=== PATIENT | male | born 1970 | race Caucasian/White ===

== ENCOUNTER → 2023-06-08 | Outpatient (CLI) | payer MEDICAID | END | disposition home or self-care (01) | LOC: LAB 05:58 | PROVIDERS: ATTEND Podiatrist | DX: E11.621 Type 2 diabetes mellitus with foot ulcer (principal) | CPT/HCPCS: 87077; 87186; 87205 ==

== ENCOUNTER 2023-08-09 10:23 | Day surgery (SDC) | payer OTHER, MEDICAID ==
[2023-08-08 10:50] LABS: Basophils # (auto) 0.1 10 ^3/uL (0-0.2); Basophils % (auto) 0.9 % (0.0-2.0); Eosinophils # (auto) 0.2 10 ^3/uL (0-0.8); Eosinophils % (auto) 3.3 % (0.0-7.0); Hematocrit 41.3 % (41.0-53.0); Lymphocytes # (auto) 1.9 10 ^3/uL (0.4-5.4); Lymphocytes % (auto) 26.8 % (10.0-50.0); Mean Corpuscular Hgb Conc. 33.9 g/dL (32.0-36.0); Mean Corpuscular Volume 82.6 fL (80.0-100.0); Monocytes # (auto) 0.6 10 ^3/uL (0-1.3); Monocytes % (auto) 8.5 % (0.0-12.0); Neutrophils # (auto) 4.2 10 ^3/uL (1.6-8.6); Neutrophils % (auto) 60.5 % (37.0-80.0); Nucleated Red Blood Cells % 0.2 %; Red Cell Distribution Width 14.7 % (11.8-14.3)
[2023-08-08 10:57] LABS: Urine Bacteria NONE SEEN /hpf (None Seen); Urine Blood Negative /uL (Negative); Urine Clarity Clear (Clear); Urine Color Yellow (Yellow); Urine Protein, UAD 1+ (Negative); Urine Specific Gravity 1.023 (1.001-1.035); Urine Urobilinogen Normal (Negative); Urine WBC 3 /hpf (0 - 3)
[2023-08-08 11:13] LABS: INR 1.04 (0.9-1.15); Partial Thromboplastin Time 25.8 SEC (24.5-34.5); Prothrombin Time 10.9 sec (9.3-11.8)
[2023-08-08 11:39] LABS: Alanine Aminotransferase 22 U/L (7-40); Albumin 4.9 g/dL (3.2-4.8); Alkaline Phosphatase 71 U/L (46-116); Anion Gap 6 (5-15); Aspartate Aminotransferase 16 U/L (13-40); BUN/Creatinine Ratio 18.2 (10.0-20.0); Bilirubin, Total 0.4 mg/dL (0.2-1.0); Blood Urea Nitrogen 18 mg/dL (9-23); Calcium 10.5 mg/dL (8.7-10.4); Carbon Dioxide 29 mmol/L (20-30); Chloride 101 mmol/L (98-107); Glucose 75 mg/dL (74-106); Potassium 4.7 mmol/L (3.5-5.1); Sodium 136 mmol/L (136-145); Total Protein 8.2 g/dL (5.7-8.2)
[~2023-08-09] VITALS: Ht 188 cm; Wt 137.9 kg
[~2023-08-09 10:23] MED LIST: ALEN35TA18 PO; AMLO1TAB22 PO; ASPI81CH59 PO; ATOR40TA52 PO; CANA300T OR; CHLO25TA2 PO; CYCL-837 PO; GABA-1250 PO; IBUP-1454 PO; INSU100I52 IJ; INSU1INJ19 SC; LISI40TA16 PO; METF-372 PO; OMEP20TA PO
[2023-08-09] MEDS ORDERED: ceFAZolin 2 GM/D5W100ml 100 ML IV ONE (10:46)
[2023-08-09] MEDS ORDERED: PROPOFOL 10 MG/ML 20 ML IV ONE (11:29)
[2023-08-09] MEDS ORDERED: fentaNYL CITRATE 100 MCG/2 ML VL ONE (11:29)
[2023-08-09] MEDS ORDERED: MEPERIDINE HCL (25 MG/ML) 1ML VIAL IV PRN (12:15)
[2023-08-09] MEDS ORDERED: ONDANSETRON HCL 4 MG/2 ML VIAL IV PRN (12:15)
[2023-08-09] MEDS ORDERED: HYDROmorphone HCL 2 MG/ML VL/or syr IV PRN (12:15)
[2023-08-09] MEDS ORDERED: METOCLOPRAMIDE HCL 5MG/ml INJ 2ml VIAL IV PRN (12:15)
[2023-08-09] MEDS ORDERED: DexAMETHasone SOD PHOS 10MG/1ML VIAL INJ ONE (12:32)
[2023-08-09] MEDS ORDERED: ONDANSETRON HCL 4 MG/2 ML VIAL ONE (12:32)
[2023-08-09] MEDS ORDERED: ePHEDrine SULFATE 50 MG/ML AMP ONE (12:36)
[2023-08-09 13:22] VITALS: PULSE 101; RESP 18; TEMP 97.3; O2SAT 97
[2023-08-09 14:00] VITALS: PULSE 96; RESP 13; O2SAT 96
[2023-08-09 14:20] VITALS: BP 125/67; PULSE 96; RESP 16; O2SAT 95
[2023-08-10] MEDS ORDERED: DAKINS QUARTER STR 0.125% (NaHypochlorite) 473 ML TOPICAL SOL TOP SCH (10:00)
== END 2023-08-09 14:35 | disposition home or self-care (01) ==
LOC: SUR 10:23
PROVIDERS: ATTEND Podiatrist
DX: M86.8X7 Other osteomyelitis, ankle and foot (principal)
CPT/HCPCS: 28810; 36415; 80053; 81001; 82962; 85025; 85610; 85730; 87070; 87075; 87205; J1100; J2405; J2704; J3010; L3260